=== PATIENT | male | born 1985 ===

== ENCOUNTER 2024-03-24 14:22 | Emergency (ER) | payer OTHER ==
[2024-03-24] MEDS: Ketorolac 30 MG/ML SDV IM ONE (15:47)
== END 2024-03-24 16:13 | disposition home or self-care (01) ==
LOC: MW.ED 14:22
DX: M79.662 Pain in left lower leg (principal); Z75.8 Other problems related to medical facilities and other health care
CPT/HCPCS: 96372; 99283; J1885